=== PATIENT | male | born 2000 | race Caucasian/White ===

== ENCOUNTER 2022-02-15 23:38 | Emergency (ER) | payer BC ==
[2022-02-16] MEDS ORDERED: Lidocaine 1% (PF) 30 ML VIAL ONE (00:01)
== END 2022-02-16 01:56 | disposition home or self-care (01) ==
LOC: CSHERS 23:38
DX: S61.012A Laceration without foreign body of left thumb without damage to nail, initial encounter (principal); X58.XXXA Exposure to other specified factors, initial encounter
CPT/HCPCS: 12001; J2001